=== PATIENT | female | born 1955 | race Caucasian/White ===

== ENCOUNTER 2023-07-22 01:44 | Outpatient (RCR) | payer MEDICARE, SELFPAY ==
[2023-07-20] MEDS: Normal Saline Flush 10 ML SYR IVP (07:36)
[2023-07-20 08:03] LABS: Abs Immature Grans 0.03 10^3/uL (0.0-0.06); Absolute Basophil Count 0.02 10^3/uL (0.0-0.2); Absolute Eosinophil Count 0.06 10^3/uL (0.0-0.7); Absolute Lymphocyte Count 1.81 10^3/uL (1.2-3.4); Absolute Monocyte Count 0.66 10^3/uL (0.1-0.8); Absolute Neutrophil Count 5.26 10^3/uL (1.2-6.7); Basophils % 0.3; Eosinophils % 0.8; HCT 34.6 % (36.0-46.0); HGB 11.3 g/dL (11.2-15.7); Immature Grans % 0.4; Lymphocytes % 23.1; MCHC 32.7 % (32.0-36.0); MCV 92 fL (80-95); MPV 8.7 fL (8.0-11.0); Monocytes % 8.4; Platelet Count 193 10^3/uL (130-400); RBC 3.77 10^6/uL (3.93-5.22); RDW 16.7 % (11.7-14.6); RDW-SD 53.3 fL; WBC 7.84 10^3/uL (4.4-10.8)
[2023-07-20 08:18] LABS: ALT 15 U/L (14-59); AST 15 U/L (15-37); Albumin 3.3 g/dL (3.4-5.0); Alkaline Phosphatase 71 U/L (46-116); Anion Gap 9.6 mmol/L (3-11); BUN 12 mg/dL (7-18); Bilirubin, Total 0.8 mg/dL (0.2-1.0); CO2 27.4 mmol/L (21.0-32.0); CREATININE 0.8 mg/dL (0.55-1.02); Calcium 9.6 mg/dL (8.5-10.1); Chloride 103 mmol/L (98-107); Estimated GFR 79.71 (mL/min/1.73m2); Glucose 90 mg/dL (74-106); Potassium 3.7 mmol/L (3.5-5.1); Sodium 140 mmol/L (136-145); Total Protein 7.8 g/dL (6.4-8.2)
[2023-07-20 19:41] LABS: CEA 1.9 ng/mL (See Note)
[2023-07-22 10:24] VITALS: BP 170/78; PULSE 68; RESP 16; TEMP 36.5; O2SAT 99
[2023-07-22] MEDS: Normal Saline Flush 10 ML SYR IVP (10:26)
[2023-07-22] MEDS: Heparin 500 UNITS/5 ML SYRINGE IV (10:27)
== END 2023-08-02 23:59 | disposition home or self-care (01) ==
LOC: INF 01:44
PROVIDERS: Visit Provider Internal Medicine Hematology & Oncology
DX: C18.2 Malignant neoplasm of ascending colon (principal); Z45.2 Encounter for adjustment and management of vascular access device
CPT/HCPCS: 36591; 80053; 81232; 96523; 82378; 85025

== ENCOUNTER 2023-09-02 02:30 | Outpatient (RCR) | payer MEDICARE, SELFPAY ==
[2023-08-03 00:27] VITALS: BP 170/78; PULSE 68; RESP 16; TEMP 36.5
[2023-08-03] MEDS: Normal Saline Flush 10 ML SYR IVP (07:56)
[2023-08-03 08:22] LABS: Absolute Basophil Count 0.02 10^3/uL (0.0-0.2); Absolute Eosinophil Count 0.05 10^3/uL (0.0-0.7); Absolute Lymphocyte Count 1.31 10^3/uL (1.2-3.4); Absolute Monocyte Count 0.45 10^3/uL (0.1-0.8); Absolute Neutrophil Count 1.53 10^3/uL (1.2-6.7); Basophils % 0.6; Eosinophils % 1.5; HCT 34.4 % (36.0-46.0); HGB 11.5 g/dL (11.2-15.7); MCHC 33.4 % (32.0-36.0); MCV 93 fL (80-95); MPV 8.7 fL (8.0-11.0); Monocytes % 13.4; Neutrophils % 45.5; Platelet Count 227 10^3/uL (130-400); RBC 3.71 10^6/uL (3.93-5.22); RDW 13.7 % (11.7-14.6); RDW-SD 45.1 fL; WBC 3.36 10^3/uL (4.4-10.8)
[2023-08-03 08:49] LABS: ALT 14 U/L (14-59); AST 12 U/L (15-37); Albumin 3.3 g/dL (3.4-5.0); Alkaline Phosphatase 84 U/L (46-116); Anion Gap 10.2 mmol/L (3-11); BUN 17 mg/dL (7-18); Bilirubin, Total 0.2 mg/dL (0.2-1.0); CO2 27.8 mmol/L (21.0-32.0); CREATININE 0.7 mg/dL (0.55-1.02); Calcium 9.1 mg/dL (8.5-10.1); Chloride 104 mmol/L (98-107); Estimated GFR 93.56 (mL/min/1.73m2); Glucose 86 mg/dL (74-106); Potassium 3.9 mmol/L (3.5-5.1); Sodium 142 mmol/L (136-145); Total Protein 7.7 g/dL (6.4-8.2)
[2023-08-03 21:14] LABS: CEA 2.6 ng/mL (See Note)
[2023-08-05 10:55] VITALS: BP 146/77; PULSE 63; RESP 16; TEMP 36.5; O2SAT 99
[2023-08-05] MEDS: Heparin 500 UNITS/5 ML SYRINGE IV (11:00)
[2023-08-05] MEDS: Normal Saline Flush 10 ML SYR IVP (11:00)
[2023-08-17 08:15] LABS: Abs Immature Grans 0.02 10^3/uL (0.0-0.06); Absolute Basophil Count 0.03 10^3/uL (0.0-0.2); Absolute Eosinophil Count 0.03 10^3/uL (0.0-0.7); Absolute Lymphocyte Count 1.55 10^3/uL (1.2-3.4); Absolute Monocyte Count 0.73 10^3/uL (0.1-0.8); Absolute Neutrophil Count 3.47 10^3/uL (1.2-6.7); Basophils % 0.5; Eosinophils % 0.5; HGB 11.7 g/dL (11.2-15.7); Immature Grans % 0.3; Lymphocytes % 26.6; MCH 31.7 pg (27.0-33.0); MCHC 34.4 % (32.0-36.0); MCV 92 fL (80-95); Monocytes % 12.5; Neutrophils % 59.6; Platelet Count 121 10^3/uL (130-400); RBC 3.69 10^6/uL (3.93-5.22); RDW 13.7 % (11.7-14.6); WBC 5.83 10^3/uL (4.4-10.8)
[2023-08-17 08:34] LABS: ALT 32 U/L (14-59); AST 43 U/L (15-37); Albumin 3.4 g/dL (3.4-5.0); Alkaline Phosphatase 75 U/L (46-116); Anion Gap 9.5 mmol/L (3-11); BUN 16 mg/dL (7-18); Bilirubin, Total 0.2 mg/dL (0.2-1.0); CO2 26.5 mmol/L (21.0-32.0); CREATININE 0.7 mg/dL (0.55-1.02); Calcium 9.2 mg/dL (8.5-10.1); Chloride 104 mmol/L (98-107); Estimated GFR 93.56 (mL/min/1.73m2); Glucose 89 mg/dL (74-106); Potassium 3.9 mmol/L (3.5-5.1); Sodium 140 mmol/L (136-145); Total Protein 7.5 g/dL (6.4-8.2)
[2023-08-17] MEDS: Normal Saline Flush 10 ML SYR IVP (10:21)
[2023-08-17 21:11] LABS: CEA 3.6 ng/mL (See Note)
[2023-08-19 09:18] VITALS: BP 170/97; PULSE 72; RESP 16; TEMP 35.9; O2SAT 98
[2023-08-19] MEDS: Normal Saline Flush 10 ML SYR IVP (09:31)
[2023-08-19] MEDS: Heparin 500 UNITS/5 ML SYRINGE IV (09:31)
[2023-08-31] MEDS: Normal Saline Flush 10 ML SYR IVP (07:30)
[2023-08-31 08:06] LABS: Abs Immature Grans 0.01 10^3/uL (0.0-0.06); Absolute Basophil Count 0.02 10^3/uL (0.0-0.2); Absolute Eosinophil Count 0.02 10^3/uL (0.0-0.7); Absolute Lymphocyte Count 1.35 10^3/uL (1.2-3.4); Absolute Monocyte Count 0.74 10^3/uL (0.1-0.8); Absolute Neutrophil Count 1.79 10^3/uL (1.2-6.7); Basophils % 0.5; Eosinophils % 0.5; HCT 33.3 % (36.0-46.0); HGB 11.2 g/dL (11.2-15.7); Immature Grans % 0.3; Lymphocytes % 34.4; MCHC 33.6 % (32.0-36.0); MCV 92 fL (80-95); MPV 9.1 fL (8.0-11.0); Monocytes % 18.8; Neutrophils % 45.5; Platelet Count 134 10^3/uL (130-400); RBC 3.61 10^6/uL (3.93-5.22); RDW 14.6 % (11.7-14.6); RDW-SD 47.8 fL; WBC 3.93 10^3/uL (4.4-10.8)
[2023-08-31 08:23] LABS: ALT 131 U/L (14-59); AST 145 U/L (15-37); Alkaline Phosphatase 98 U/L (46-116); Anion Gap 9.5 mmol/L (3-11); BUN 12 mg/dL (7-18); Bilirubin, Total 0.4 mg/dL (0.2-1.0); CO2 26.5 mmol/L (21.0-32.0); CREATININE 0.6 mg/dL (0.55-1.02); Calcium 9.1 mg/dL (8.5-10.1); Chloride 104 mmol/L (98-107); Glucose 85 mg/dL (74-106); Potassium 3.6 mmol/L (3.5-5.1); Sodium 140 mmol/L (136-145); Total Protein 7.2 g/dL (6.4-8.2)
[2023-09-01 12:59] LABS: CEA 3.3 ng/mL (See Note)
[2023-09-02] MEDS: Heparin 500 UNITS/5 ML SYRINGE IV (10:00)
[2023-09-02 10:13] VITALS: BP 146/77; PULSE 69; RESP 16; TEMP 36.5; O2SAT 99
== END 2023-09-02 23:59 | disposition home or self-care (01) ==
LOC: INF 02:30
PROVIDERS: Visit Provider Internal Medicine Hematology & Oncology
DX: C18.2 Malignant neoplasm of ascending colon (principal); Z45.2 Encounter for adjustment and management of vascular access device
CPT/HCPCS: 36591; 80053; 96523; 82378; 85025; J1642

== ENCOUNTER 2023-09-23 00:01 | Outpatient (RCR) | payer MEDICARE, MEDICAID, SELFPAY ==
[2023-09-03 00:23] VITALS: BP 170/78; PULSE 68; RESP 16; TEMP 36.5
[2023-09-14] MEDS: Normal Saline Flush 10 ML SYR IVP (07:39)
[2023-09-14 07:59] LABS: Abs Immature Grans 0.01 10^3/uL (0.0-0.06); HCT 33.4 % (36.0-46.0); HGB 11.7 g/dL (11.2-15.7); MCH 32.9 pg (27.0-33.0); MCV 94 fL (80-95); MPV 10.3 fL (8.0-11.0); RBC 3.56 10^6/uL (3.93-5.22); RDW 15.5 % (11.7-14.6); RDW-SD 52.1 fL
[2023-09-14 08:15] LABS: Absolute Basophil Count 0.04 10^3/uL (0.0-0.2); Absolute Eosinophil Count 0.07 10^3/uL (0.0-0.7); Absolute Lymphocyte Count 1.14 10^3/uL (1.2-3.4); Absolute Monocyte Count 0.31 10^3/uL (0.1-0.8); Absolute Neutrophil Count 0.64 10^3/uL (1.2-6.7); Atypical Lymphocytes % 4; Diff Comment Manual Differential; Platelet Count 121 10^3/uL (130-400); RBC Morphology Normal
[2023-09-14 08:20] LABS: ALT 81 U/L (14-59); AST 79 U/L (15-37); Albumin 3.1 g/dL (3.4-5.0); Alkaline Phosphatase 94 U/L (46-116); Anion Gap 9.3 mmol/L (3-11); BUN 10 mg/dL (7-18); Bilirubin, Total 0.5 mg/dL (0.2-1.0); CO2 29.7 mmol/L (21.0-32.0); CREATININE 0.8 mg/dL (0.55-1.02); Calcium 9.8 mg/dL (8.5-10.1); Chloride 106 mmol/L (98-107); Estimated GFR 79.71 (mL/min/1.73m2); Glucose 102 mg/dL (74-106); Potassium 3.8 mmol/L (3.5-5.1); Sodium 145 mmol/L (136-145); Total Protein 7.3 g/dL (6.4-8.2)
[2023-09-14 18:51] LABS: CEA 5.5 ng/mL (See Note)
[2023-09-21] MEDS: Normal Saline Flush 10 ML SYR IVP (07:15)
[2023-09-21 07:33] LABS: Abs Immature Grans 0.06 10^3/uL (0.0-0.06); Absolute Basophil Count 0.07 10^3/uL (0.0-0.2); Absolute Eosinophil Count 0.11 10^3/uL (0.0-0.7); Absolute Lymphocyte Count 1.59 10^3/uL (1.2-3.4); Absolute Monocyte Count 0.52 10^3/uL (0.1-0.8); Absolute Neutrophil Count 1.16 10^3/uL (1.2-6.7); Eosinophils % 3.1; HCT 36.8 % (36.0-46.0); HGB 12.2 g/dL (11.2-15.7); Immature Grans % 1.7; Lymphocytes % 45.3; MCH 31.4 pg (27.0-33.0); MCHC 33.2 % (32.0-36.0); MCV 95 fL (80-95); Monocytes % 14.8; Neutrophils % 33.1; Platelet Count 251 10^3/uL (130-400); RBC 3.89 10^6/uL (3.93-5.22); RDW 15.9 % (11.7-14.6); RDW-SD 55.1 fL; WBC 3.51 10^3/uL (4.4-10.8)
[2023-09-21 07:48] LABS: ALT 56 U/L (14-59); AST 39 U/L (15-37); Albumin 3.3 g/dL (3.4-5.0); Alkaline Phosphatase 94 U/L (46-116); Anion Gap 8.1 mmol/L (3-11); BUN 17 mg/dL (7-18); Bilirubin, Total 0.3 mg/dL (0.2-1.0); CO2 26.9 mmol/L (21.0-32.0); CREATININE 0.7 mg/dL (0.55-1.02); Calcium 9.7 mg/dL (8.5-10.1); Chloride 105 mmol/L (98-107); Estimated GFR 93.56 (mL/min/1.73m2); Glucose 86 mg/dL (74-106); Sodium 140 mmol/L (136-145); Total Protein 7.5 g/dL (6.4-8.2)
[2023-09-21 20:35] LABS: CEA 3.8 ng/mL (See Note)
[2023-09-23] MEDS: Normal Saline Flush 10 ML SYR IVP (09:35)
== END 2023-10-03 23:59 | disposition home or self-care (01) ==
LOC: INF 00:01
PROVIDERS: Visit Provider Internal Medicine Hematology & Oncology
DX: C18.2 Malignant neoplasm of ascending colon (principal); Z45.2 Encounter for adjustment and management of vascular access device
CPT/HCPCS: 36591; 80053; 96523; 82378; 85025

== ENCOUNTER 2023-10-28 00:06 | Outpatient (RCR) | payer MEDICARE, MEDICAID, SELFPAY ==
[2023-10-04 00:27] VITALS: BP 170/78; PULSE 68; RESP 16; TEMP 36.5
[2023-10-05 08:02] LABS: Absolute Basophil Count 0.01 10^3/uL (0.0-0.2); Absolute Eosinophil Count 0.07 10^3/uL (0.0-0.7); Absolute Lymphocyte Count 1.01 10^3/uL (1.2-3.4); Absolute Monocyte Count 0.52 10^3/uL (0.1-0.8); Absolute Neutrophil Count 1.38 10^3/uL (1.2-6.7); Basophils % 0.3; Eosinophils % 2.3; HCT 31.9 % (36.0-46.0); HGB 10.6 g/dL (11.2-15.7); Lymphocytes % 33.8; MCH 31.3 pg (27.0-33.0); MCHC 33.2 % (32.0-36.0); MCV 94 fL (80-95); MPV 9.7 fL (8.0-11.0); Monocytes % 17.4; Neutrophils % 46.2; Platelet Count 133 10^3/uL (130-400); RBC 3.39 10^6/uL (3.93-5.22); RDW 15.8 % (11.7-14.6); RDW-SD 54.2 fL; WBC 2.99 10^3/uL (4.4-10.8)
[2023-10-05 08:17] LABS: ALT 33 U/L (14-59); AST 30 U/L (15-37); Albumin 3.2 g/dL (3.4-5.0); Alkaline Phosphatase 98 U/L (46-116); Anion Gap 6.9 mmol/L (3-11); BUN 15 mg/dL (7-18); Bilirubin, Total 0.3 mg/dL (0.2-1.0); CO2 28.1 mmol/L (21.0-32.0); CREATININE 0.8 mg/dL (0.55-1.02); Calcium 9.3 mg/dL (8.5-10.1); Chloride 106 mmol/L (98-107); Estimated GFR 79.71 (mL/min/1.73m2); Glucose 91 mg/dL (74-106); Potassium 3.8 mmol/L (3.5-5.1); Sodium 141 mmol/L (136-145); Total Protein 7.3 g/dL (6.4-8.2)
[2023-10-05 18:32] LABS: CEA 4.2 ng/mL (See Note)
[2023-10-12] MEDS: Normal Saline Flush 10 ML SYR IVP (07:44)
[2023-10-12 08:17] LABS: Abs Immature Grans 0.06 10^3/uL (0.0-0.06); Absolute Basophil Count 0.03 10^3/uL (0.0-0.2); Absolute Eosinophil Count 0.06 10^3/uL (0.0-0.7); Absolute Lymphocyte Count 1.35 10^3/uL (1.2-3.4); Absolute Monocyte Count 0.43 10^3/uL (0.1-0.8); Absolute Neutrophil Count 1.28 10^3/uL (1.2-6.7); Basophils % 0.9; Eosinophils % 1.9; HCT 34.1 % (36.0-46.0); HGB 11.4 g/dL (11.2-15.7); Immature Grans % 1.9; Lymphocytes % 42.1; MCH 31.8 pg (27.0-33.0); MCHC 33.4 % (32.0-36.0); MCV 95 fL (80-95); MPV 9.4 fL (8.0-11.0); Monocytes % 13.4; Neutrophils % 39.8; Platelet Count 239 10^3/uL (130-400); RBC 3.59 10^6/uL (3.93-5.22); RDW 15.9 % (11.7-14.6); WBC 3.21 10^3/uL (4.4-10.8)
[2023-10-12 08:37] LABS: ALT 48 U/L (14-59); AST 44 U/L (15-37); Albumin 3.4 g/dL (3.4-5.0); Alkaline Phosphatase 99 U/L (46-116); Anion Gap 9.9 mmol/L (3-11); BUN 18 mg/dL (7-18); Bilirubin, Total 0.4 mg/dL (0.2-1.0); CO2 28.1 mmol/L (21.0-32.0); CREATININE 0.6 mg/dL (0.55-1.02); Calcium 9.6 mg/dL (8.5-10.1); Chloride 103 mmol/L (98-107); Glucose 82 mg/dL (74-106); Potassium 3.8 mmol/L (3.5-5.1); Sodium 141 mmol/L (136-145); Total Protein 7.5 g/dL (6.4-8.2)
[2023-10-14 09:41] VITALS: BP 137/65; PULSE 70; RESP 18; TEMP 36; O2SAT 99
[2023-10-14] MEDS: Normal Saline Flush 10 ML SYR IVP (09:44)
[2023-10-26] MEDS: Normal Saline Flush 10 ML SYR IVP (07:11)
[2023-10-26 07:20] LABS: Abs Immature Grans 0.01 10^3/uL (0.0-0.06); Absolute Basophil Count 0.02 10^3/uL (0.0-0.2); Absolute Eosinophil Count 0.08 10^3/uL (0.0-0.7); Absolute Lymphocyte Count 1.06 10^3/uL (1.2-3.4); Absolute Monocyte Count 0.46 10^3/uL (0.1-0.8); Absolute Neutrophil Count 1.57 10^3/uL (1.2-6.7); Basophils % 0.6; Eosinophils % 2.5; HCT 29.9 % (36.0-46.0); Immature Grans % 0.3; Lymphocytes % 33.1; MCH 32.2 pg (27.0-33.0); MCHC 33.4 % (32.0-36.0); MCV 96 fL (80-95); Monocytes % 14.4; Neutrophils % 49.1; Platelet Count 102 10^3/uL (130-400); RBC 3.11 10^6/uL (3.93-5.22); RDW 15.4 % (11.7-14.6); RDW-SD 53.5 fL
[2023-10-26 07:34] LABS: ALT 39 U/L (14-59); AST 36 U/L (15-37); Albumin 3.3 g/dL (3.4-5.0); Alkaline Phosphatase 97 U/L (46-116); Anion Gap 9.1 mmol/L (3-11); BUN 11 mg/dL (7-18); Bilirubin, Total 0.5 mg/dL (0.2-1.0); CO2 26.9 mmol/L (21.0-32.0); CREATININE 0.7 mg/dL (0.55-1.02); Calcium 9.4 mg/dL (8.5-10.1); Chloride 107 mmol/L (98-107); Estimated GFR 93.56 (mL/min/1.73m2); Glucose 85 mg/dL (74-106); Potassium 3.8 mmol/L (3.5-5.1); Sodium 143 mmol/L (136-145)
[2023-10-28] MEDS: Normal Saline Flush 10 ML SYR IVP (09:04)
== END 2023-11-01 23:59 | disposition home or self-care (01) ==
LOC: INF 00:06
PROVIDERS: Visit Provider Internal Medicine Hematology & Oncology
DX: C18.2 Malignant neoplasm of ascending colon (principal); Z45.2 Encounter for adjustment and management of vascular access device
CPT/HCPCS: 36591; 80053; 96523; 82378; 85025

== ENCOUNTER 2023-11-25 00:46 | Outpatient (RCR) | payer MEDICARE, SELFPAY ==
[2023-11-02 00:09] VITALS: BP 170/78; PULSE 68; RESP 16; TEMP 36.5
[2023-11-09] MEDS: Normal Saline Flush 10 ML SYR IVP (07:10)
[2023-11-09 07:29] LABS: Abs Immature Grans 0.01 10^3/uL (0.0-0.06); Absolute Basophil Count 0.02 10^3/uL (0.0-0.2); Absolute Eosinophil Count 0.04 10^3/uL (0.0-0.7); Absolute Lymphocyte Count 1.14 10^3/uL (1.2-3.4); Absolute Monocyte Count 0.64 10^3/uL (0.1-0.8); Absolute Neutrophil Count 2.16 10^3/uL (1.2-6.7); Basophils % 0.5; HCT 32.6 % (36.0-46.0); HGB 10.9 g/dL (11.2-15.7); Immature Grans % 0.2; Lymphocytes % 28.4; MCH 32.6 pg (27.0-33.0); MCHC 33.4 % (32.0-36.0); MCV 98 fL (80-95); MPV 9.4 fL (8.0-11.0); Neutrophils % 53.9; Platelet Count 106 10^3/uL (130-400); RBC 3.34 10^6/uL (3.93-5.22); RDW-SD 54.1 fL; WBC 4.01 10^3/uL (4.4-10.8)
[2023-11-09 07:59] LABS: ALT 38 U/L (14-59); AST 34 U/L (15-37); Albumin 3.4 g/dL (3.4-5.0); Alkaline Phosphatase 103 U/L (46-116); Anion Gap 5.9 mmol/L (3-11); BUN 13 mg/dL (7-18); Bilirubin, Total 0.4 mg/dL (0.2-1.0); CO2 29.1 mmol/L (21.0-32.0); CREATININE 0.8 mg/dL (0.55-1.02); Calcium 9.6 mg/dL (8.5-10.1); Chloride 105 mmol/L (98-107); Estimated GFR 79.71 (mL/min/1.73m2); Glucose 86 mg/dL (74-106); Potassium 3.8 mmol/L (3.5-5.1); Sodium 140 mmol/L (136-145); Total Protein 7.3 g/dL (6.4-8.2)
[2023-11-09 18:10] LABS: CEA 4.7 ng/mL (See Note)
[2023-11-11 10:10] VITALS: BP 135/82; PULSE 86; RESP 18; TEMP 36.6; O2SAT 99
[2023-11-23] MEDS: Normal Saline Flush 10 ML SYR IVP (07:05)
[2023-11-23 07:54] LABS: Abs Immature Grans 0.01 10^3/uL (0.0-0.06); Absolute Basophil Count 0.01 10^3/uL (0.0-0.2); Absolute Eosinophil Count 0.04 10^3/uL (0.0-0.7); Absolute Lymphocyte Count 1.21 10^3/uL (1.2-3.4); Absolute Monocyte Count 0.46 10^3/uL (0.1-0.8); Absolute Neutrophil Count 1.19 10^3/uL (1.2-6.7); Basophils % 0.3; Eosinophils % 1.4; HCT 32.1 % (36.0-46.0); HGB 10.5 g/dL (11.2-15.7); Immature Grans % 0.3; Lymphocytes % 41.4; MCH 32.4 pg (27.0-33.0); MCHC 32.7 % (32.0-36.0); MCV 99 fL (80-95); Monocytes % 15.8; Neutrophils % 40.8; Platelet Count 101 10^3/uL (130-400); RBC 3.24 10^6/uL (3.93-5.22); RDW 14.1 % (11.7-14.6); RDW-SD 51.8 fL; WBC 2.92 10^3/uL (4.4-10.8)
[2023-11-23 08:35] LABS: ALT 35 U/L (14-59); AST 40 U/L (15-37); Albumin 3.4 g/dL (3.4-5.0); Alkaline Phosphatase 99 U/L (46-116); Anion Gap 9.5 mmol/L (3-11); BUN 15 mg/dL (7-18); Bilirubin, Total 0.4 mg/dL (0.2-1.0); CO2 26.5 mmol/L (21.0-32.0); CREATININE 0.7 mg/dL (0.55-1.02); Calcium 9.2 mg/dL (8.5-10.1); Chloride 107 mmol/L (98-107); Estimated GFR 93.56 (mL/min/1.73m2); Glucose 82 mg/dL (74-106); Potassium 3.6 mmol/L (3.5-5.1); Sodium 143 mmol/L (136-145); Total Protein 7.4 g/dL (6.4-8.2)
[2023-11-25] MEDS: Normal Saline Flush 10 ML SYR IVP (08:18)
== END 2023-12-02 23:59 | disposition home or self-care (01) ==
LOC: INF 00:46
PROVIDERS: Visit Provider Internal Medicine Hematology & Oncology
DX: C18.2 Malignant neoplasm of ascending colon (principal); Z45.2 Encounter for adjustment and management of vascular access device
CPT/HCPCS: 36591; 80053; 96523; 82378; 85025

== ENCOUNTER 2023-12-23 01:07 | Outpatient (RCR) | payer MEDICARE, SELFPAY ==
[2023-12-03 00:16] VITALS: BP 170/78; PULSE 68; RESP 16; TEMP 36.5
[2023-12-07] MEDS: Normal Saline Flush 10 ML SYR IVP (07:38)
[2023-12-07 07:45] LABS: Abs Immature Grans 0.01 10^3/uL (0.0-0.06); Absolute Basophil Count 0.01 10^3/uL (0.0-0.2); Absolute Eosinophil Count 0.04 10^3/uL (0.0-0.7); Absolute Lymphocyte Count 1.11 10^3/uL (1.2-3.4); Absolute Monocyte Count 0.51 10^3/uL (0.1-0.8); Absolute Neutrophil Count 1.29 10^3/uL (1.2-6.7); Basophils % 0.3; Eosinophils % 1.3; HCT 32.6 % (36.0-46.0); HGB 10.7 g/dL (11.2-15.7); Immature Grans % 0.3; Lymphocytes % 37.4; MCH 32.6 pg (27.0-33.0); MCHC 32.8 % (32.0-36.0); MCV 99 fL (80-95); MPV 11.5 fL (8.0-11.0); Monocytes % 17.2; Neutrophils % 43.5; Platelet Count 104 10^3/uL (130-400); RBC 3.28 10^6/uL (3.93-5.22); RDW-SD 54.4 fL; WBC 2.97 10^3/uL (4.4-10.8)
[2023-12-07 08:02] LABS: ALT 39 U/L (14-59); AST 38 U/L (15-37); Albumin 3.4 g/dL (3.4-5.0); Alkaline Phosphatase 98 U/L (46-116); Anion Gap 8.2 mmol/L (3-11); BUN 11 mg/dL (7-18); Bilirubin, Total 0.5 mg/dL (0.2-1.0); CO2 26.8 mmol/L (21.0-32.0); CREATININE 0.6 mg/dL (0.55-1.02); Calcium 9.3 mg/dL (8.5-10.1); Chloride 108 mmol/L (98-107); Glucose 86 mg/dL (74-106); Sodium 143 mmol/L (136-145); Total Protein 7.2 g/dL (6.4-8.2)
[2023-12-07 18:00] LABS: CEA 4.3 ng/mL (See Note)
[2023-12-09] MEDS: Normal Saline Flush 10 ML SYR IVP (08:15)
[2023-12-21] MEDS: Normal Saline Flush 10 ML SYR IVP (07:00)
[2023-12-21 07:19] LABS: Abs Immature Grans 0.03 10^3/uL (0.0-0.06); Absolute Basophil Count 0.03 10^3/uL (0.0-0.2); Absolute Eosinophil Count 0.05 10^3/uL (0.0-0.7); Absolute Lymphocyte Count 1.74 10^3/uL (1.2-3.4); Absolute Monocyte Count 0.49 10^3/uL (0.1-0.8); Absolute Neutrophil Count 1.82 10^3/uL (1.2-6.7); Basophils % 0.7; Eosinophils % 1.2; HCT 32.8 % (36.0-46.0); HGB 10.8 g/dL (11.2-15.7); Immature Grans % 0.7; Lymphocytes % 41.8; MCH 32.3 pg (27.0-33.0); MCHC 32.9 % (32.0-36.0); MCV 98 fL (80-95); MPV 9.8 fL (8.0-11.0); Monocytes % 11.8; Neutrophils % 43.8; Platelet Count 137 10^3/uL (130-400); RBC 3.34 10^6/uL (3.93-5.22); RDW 14.9 % (11.7-14.6); RDW-SD 53.1 fL; WBC 4.16 10^3/uL (4.4-10.8)
[2023-12-21 07:50] LABS: ALT 29 U/L (14-59); AST 23 U/L (15-37); Albumin 3.4 g/dL (3.4-5.0); Alkaline Phosphatase 97 U/L (46-116); Anion Gap 6.5 mmol/L (3-11); BUN 17 mg/dL (7-18); Bilirubin, Total 0.3 mg/dL (0.2-1.0); CO2 28.5 mmol/L (21.0-32.0); CREATININE 0.8 mg/dL (0.55-1.02); Calcium 9.1 mg/dL (8.5-10.1); Chloride 107 mmol/L (98-107); Estimated GFR 79.22 (mL/min/1.73m2); Glucose 87 mg/dL (74-106); Potassium 4.1 mmol/L (3.5-5.1); Sodium 142 mmol/L (136-145); Total Protein 7.3 g/dL (6.4-8.2)
[2023-12-23] MEDS: Normal Saline Flush 10 ML SYR IVP (08:17)
== END 2024-01-01 23:59 | disposition home or self-care (01) ==
LOC: INF 01:07
PROVIDERS: Visit Provider Internal Medicine Hematology & Oncology
DX: C18.2 Malignant neoplasm of ascending colon (principal); Z45.2 Encounter for adjustment and management of vascular access device
CPT/HCPCS: 36591; 80053; 96523; 82378; 85025

== ENCOUNTER 2024-01-06 02:25 | Outpatient (RCR) | payer MEDICARE, SELFPAY ==
[2024-01-02 00:24] VITALS: BP 170/78; PULSE 68; RESP 16; TEMP 36.5
[2024-01-04] MEDS: Normal Saline Flush 10 ML SYR IVP (07:46)
[2024-01-04 08:26] LABS: Abs Immature Grans 0.01 10^3/uL (0.0-0.06); Absolute Basophil Count 0.03 10^3/uL (0.0-0.2); Absolute Eosinophil Count 0.07 10^3/uL (0.0-0.7); Absolute Lymphocyte Count 1.35 10^3/uL (1.2-3.4); Absolute Monocyte Count 0.51 10^3/uL (0.1-0.8); Absolute Neutrophil Count 2.49 10^3/uL (1.2-6.7); Basophils % 0.7 %; Eosinophils % 1.6 %; HCT 33.3 % (36.0-46.0); HGB 10.9 g/dL (11.2-15.7); Immature Grans % 0.2 %; Lymphocytes % 30.3 %; MCH 32.2 pg (27.0-33.0); MCHC 32.7 % (32.0-36.0); MCV 98 fL (80-95); MPV 10.2 fL (8.0-11.0); Monocytes % 11.4 %; Neutrophils % 55.8 %; Platelet Count 159 10^3/uL (130-400); RBC 3.39 10^6/uL (3.93-5.22); RDW-SD 57.4 fL; WBC 4.46 10^3/uL (4.4-10.8)
[2024-01-04 08:37] LABS: ALT 26 U/L (14-59); AST 27 U/L (15-37); Albumin 3.7 g/dL (3.4-5.0); Alkaline Phosphatase 95 U/L (46-116); Anion Gap 7.5 mmol/L (3-11); BUN 20 mg/dL (7-18); Bilirubin, Total 0.5 mg/dL (0.2-1.0); CO2 28.5 mmol/L (21.0-32.0); CREATININE 0.7 mg/dL (0.55-1.02); Calcium 9.1 mg/dL (8.5-10.1); Chloride 107 mmol/L (98-107); Estimated GFR 92.98 (mL/min/1.73m2); Glucose 81 mg/dL (74-106); Potassium 4.1 mmol/L (3.5-5.1); Sodium 143 mmol/L (136-145); Total Protein 7.6 g/dL (6.4-8.2)
[2024-01-04 18:22] LABS: CEA 4.1 ng/mL (See Note)
[2024-01-06] MEDS: Normal Saline-STERILE FIELD 0.9% 10 ML SYR (08:24)
== END 2024-02-01 23:59 | disposition home or self-care (01) ==
LOC: INF 02:25
PROVIDERS: Visit Provider Internal Medicine Hematology & Oncology
DX: C18.2 Malignant neoplasm of ascending colon (principal); Z45.2 Encounter for adjustment and management of vascular access device
CPT/HCPCS: 36591; 80053; 96523; 82378; 85025

== ENCOUNTER 2024-05-09 00:49 | Outpatient (RCR) | payer MEDICARE, SELFPAY ==
[2024-05-09] MEDS: Normal Saline Flush 10 ML SYR IVP (07:53)
[2024-05-09 08:20] LABS: Abs Immature Grans 0.02 10^3/uL (0.0-0.06); Absolute Basophil Count 0.04 10^3/uL (0.0-0.2); Absolute Eosinophil Count 0.05 10^3/uL (0.0-0.7); Basophils % 0.9 %; Eosinophils % 1.1 %; HCT 36.4 % (36.0-46.0); HGB 11.7 g/dL (11.2-15.7); Immature Grans % 0.4 %; Lymphocytes % 36.9 %; MCH 30.1 pg (27.0-33.0); MCHC 32.1 % (32.0-36.0); MCV 94 fL (80-95); MPV 9.1 fL (8.0-11.0); Monocytes % 8.7 %; Platelet Count 200 10^3/uL (130-400); RBC 3.89 10^6/uL (3.93-5.22); RDW 14.7 % (11.7-14.6); RDW-SD 51.2 fL; WBC 4.61 10^3/uL (4.4-10.8)
[2024-05-09 08:41] LABS: ALT 29 U/L (14-59); AST 24 U/L (15-37); Albumin 3.9 g/dL (3.4-5.0); Alkaline Phosphatase 88 U/L (46-116); Anion Gap 10.8 mmol/L (3-11); BUN 27 mg/dL (7-18); Bilirubin, Total 0.28 mg/dL (0.2-1.0); CO2 26.2 mmol/L (21.0-32.0); CREATININE 0.8 mg/dL (0.55-1.02); Calcium 9.1 mg/dL (8.5-10.1); Chloride 104 mmol/L (98-107); Estimated GFR 79.22 (mL/min/1.73m2); Glucose 91 mg/dL (74-106); Potassium 4.1 mmol/L (3.5-5.1); Sodium 141 mmol/L (136-145)
[2024-05-09 18:31] LABS: CEA 2.9 ng/mL (See Note)
== END 2024-06-02 23:59 | disposition home or self-care (01) ==
LOC: INF 00:49
PROVIDERS: Visit Provider Internal Medicine Hematology & Oncology
DX: C18.2 Malignant neoplasm of ascending colon (principal)
CPT/HCPCS: 36591; 80053; 82378; 85025

== ENCOUNTER 2024-08-07 02:57 | Outpatient (RCR) | payer MEDICARE, SELFPAY ==
[2024-08-07] MEDS: Normal Saline Flush 10 ML SYR IVP ×2 (08:21→11:14)
[2024-08-07 11:25] LABS: Abs Immature Grans 0.05 10^3/uL (0.0-0.06); Absolute Basophil Count 0.03 10^3/uL (0.0-0.2); Absolute Eosinophil Count 0.11 10^3/uL (0.0-0.7); Absolute Lymphocyte Count 1.37 10^3/uL (1.2-3.4); Absolute Monocyte Count 0.44 10^3/uL (0.1-0.8); Absolute Neutrophil Count 5.09 10^3/uL (1.2-6.7); Basophils % 0.4 %; Eosinophils % 1.6 %; HCT 33.5 % (36.0-46.0); HGB 10.7 g/dL (11.2-15.7); Immature Grans % 0.7 %; Lymphocytes % 19.3 %; MCHC 31.9 % (32.0-36.0); MCV 97 fL (80-95); MPV 8.7 fL (8.0-11.0); Monocytes % 6.2 %; Neutrophils % 71.8 %; Platelet Count 243 10^3/uL (130-400); RBC 3.45 10^6/uL (3.93-5.22); RDW 13.8 % (11.7-14.6); RDW-SD 49.1 fL; WBC 7.09 10^3/uL (4.4-10.8)
[2024-08-07 11:40] LABS: ALT 20 U/L (14-59); AST 18 U/L (15-37); Albumin 3.6 g/dL (3.4-5.0); Alkaline Phosphatase 101 U/L (46-116); BUN 16 mg/dL (7-18); Bilirubin, Total 0.23 mg/dL (0.2-1.0); CREATININE 0.9 mg/dL (0.55-1.02); Chloride 107 mmol/L (98-107); Estimated GFR 68.77 (mL/min/1.73m2); Glucose 134 mg/dL (74-106); Sodium 144 mmol/L (136-145); Total Protein 7.7 g/dL (6.4-8.2)
[2024-08-07 19:22] LABS: CEA 2.9 ng/mL (See Note)
== END 2024-09-02 23:59 | disposition home or self-care (01) ==
LOC: INF 02:57
PROVIDERS: Visit Provider Internal Medicine Hematology & Oncology
DX: C18.2 Malignant neoplasm of ascending colon (principal); Z45.2 Encounter for adjustment and management of vascular access device
CPT/HCPCS: 80053; 96523; 82378; 85025

== ENCOUNTER 2024-10-03 10:05 | Outpatient (RCR) | payer MEDICARE, SELFPAY ==
[2024-10-03] MEDS: Normal Saline Flush 10 ML SYR IVP (10:17)
[2024-10-03] MEDS: Heparin 500 UNITS/5 ML SYRINGE (10:18)
== END 2024-10-03 23:59 | disposition home or self-care (01) ==
LOC: INF 10:05
PROVIDERS: Visit Provider Internal Medicine Hematology & Oncology
DX: Z45.2 Encounter for adjustment and management of vascular access device (principal)
CPT/HCPCS: 96523; J1642

== ENCOUNTER 2024-11-06 02:33 | Outpatient (RCR) | payer MEDICARE, SELFPAY ==
[2024-11-06] MEDS: Normal Saline Flush 10 ML SYR IVP (07:20)
== END 2024-12-01 23:59 | disposition home or self-care (01) ==
LOC: INF 02:33
PROVIDERS: Visit Provider Internal Medicine Hematology & Oncology
DX: Z45.2 Encounter for adjustment and management of vascular access device (principal)
CPT/HCPCS: 96523

== ENCOUNTER 2024-11-06 12:05 | Outpatient (REF) | payer MEDICARE, SELFPAY ==
[2024-11-06 09:25] LABS: Abs Immature Grans 0.02 10^3/uL (0.0-0.06); Absolute Basophil Count 0.02 10^3/uL (0.0-0.2); Absolute Eosinophil Count 0.06 10^3/uL (0.0-0.7); Absolute Lymphocyte Count 1.42 10^3/uL (1.2-3.4); Absolute Monocyte Count 0.46 10^3/uL (0.1-0.8); Absolute Neutrophil Count 3.67 10^3/uL (1.2-6.7); Basophils % 0.4 %; Eosinophils % 1.1 %; HCT 32.8 % (36.0-46.0); HGB 10.2 g/dL (11.2-15.7); Immature Grans % 0.4 %; Lymphocytes % 25.1 %; MCH 27.5 pg (27.0-33.0); MCHC 31.1 % (32.0-36.0); MCV 88 fL (80-95); MPV 9.8 fL (8.0-11.0); Monocytes % 8.1 %; Neutrophils % 64.9 %; Platelet Count 221 10^3/uL (130-400); RBC 3.71 10^6/uL (3.93-5.22); RDW 14.9 % (11.7-14.6); RDW-SD 48.7 fL; WBC 5.65 10^3/uL (4.4-10.8)
[2024-11-06 09:40] LABS: ALT 22 U/L (14-59); AST 20 U/L (15-37); Albumin 3.7 g/dL (3.4-5.0); Alkaline Phosphatase 92 U/L (46-116); Anion Gap 7.5 mmol/L (3-11); BUN 23 mg/dL (7-18); Bilirubin, Total 0.31 mg/dL (0.2-1.0); CO2 28.5 mmol/L (21.0-32.0); CREATININE 0.8 mg/dL (0.55-1.02); Calcium 9.2 mg/dL (8.5-10.1); Chloride 107 mmol/L (98-107); Estimated GFR 79.22 (mL/min/1.73m2); Glucose 89 mg/dL (74-106); Sodium 143 mmol/L (136-145); Total Protein 7.8 g/dL (6.4-8.2)
== END 2024-11-06 12:06 | disposition home or self-care (01) ==
LOC: LBN 12:05
PROVIDERS: Visit Provider Nurse Practitioner Family
DX: C18.2 Malignant neoplasm of ascending colon (principal)
CPT/HCPCS: 80053; 82378; 85025

== ENCOUNTER 2024-12-18 00:57 | Outpatient (RCR) | payer MEDICARE, SELFPAY ==
[2024-12-18] MEDS: Normal Saline Flush 10 ML SYR IVP (08:37)
== END 2024-12-31 23:59 | disposition home or self-care (01) ==
LOC: INF 00:57
PROVIDERS: Visit Provider Internal Medicine Hematology & Oncology
DX: Z45.2 Encounter for adjustment and management of vascular access device (principal)
CPT/HCPCS: 96523

== ENCOUNTER 2025-03-31 04:27 | Outpatient (RCR) | payer MEDICARE, SELFPAY ==
[2025-03-31] MEDS: Normal Saline Flush 10 ML SYR IVP (07:47)
[2025-03-31 12:12] LABS: Abs Immature Grans 0.05 10^3/uL (0.0-0.06); HCT 28.6 % (36.0-46.0); HGB 9.2 g/dL (11.2-15.7); Immature Grans % 0.7 %; MCH 27.7 pg (27.0-33.0); MCHC 32.2 % (32.0-36.0); MCV 86 fL (80-95); MPV 9.2 fL (8.0-11.0); Platelet Count 279 10^3/uL (130-400); RBC 3.32 10^6/uL (3.93-5.22); RDW 16.7 % (11.7-14.6); RDW-SD 51.9 fL; WBC 7.51 10^3/uL (4.4-10.8)
[2025-03-31 12:33] LABS: ALT 21 U/L (14-59); AST 21 U/L (15-37); Albumin 2.0 g/dL (3.4-5.0); Alkaline Phosphatase 123 U/L (46-116); Anion Gap 5.1 mmol/L (3-11); BUN 8 mg/dL (7-18); Bilirubin, Total 0.2 mg/dL (0.2-1.0); CO2 30.9 mmol/L (21.0-32.0); Calcium 8.3 mg/dL (8.5-10.1); Chloride 101 mmol/L (98-107); Estimated GFR 78.72 (mL/min/1.73m2); Glucose 151 mg/dL (74-106); Potassium 3.0 mmol/L (3.5-5.1); Sodium 137 mmol/L (136-145); Total Protein 5.8 g/dL (6.4-8.2)
[2025-03-31 22:51] LABS: CEA 3.0 ng/mL (See Note)
== END 2025-04-02 23:59 | disposition home or self-care (01) ==
LOC: INF 04:27
PROVIDERS: Visit Provider Internal Medicine Hematology & Oncology
DX: C18.9 Malignant neoplasm of colon, unspecified (principal); Z45.2 Encounter for adjustment and management of vascular access device
CPT/HCPCS: 36591; 80053; 82378; 85025

== ENCOUNTER 2025-04-04 00:08 | Outpatient (RCR) | payer MEDICARE, SELFPAY ==
[2025-04-04 13:29] VITALS: BP 140/86; PULSE 72; RESP 22; TEMP 36.3; O2SAT 98
[2025-04-04] MEDS: Normal Saline Flush 10 ML SYR IVP (14:45)
== END 2025-05-03 23:59 | disposition home or self-care (01) ==
LOC: INF 00:08
PROVIDERS: Visit Provider Internal Medicine Hematology & Oncology
DX: Z45.2 Encounter for adjustment and management of vascular access device (principal)
CPT/HCPCS: 96523

== ENCOUNTER 2025-04-16 03:37 | Outpatient (RCR) | payer MEDICARE, SELFPAY ==
[2025-04-16] MEDS: Normal Saline Flush 10 ML SYR IVP (07:22)
[2025-04-16 07:24] LABS: Abs Immature Grans 0.01 10^3/uL (0.0-0.06); HCT 28.3 % (36.0-46.0); HGB 9.1 g/dL (11.2-15.7); Immature Grans % 0.3 %; MCH 28.1 pg (27.0-33.0); MCHC 32.2 % (32.0-36.0); MCV 87 fL (80-95); MPV 8.7 fL (8.0-11.0); Platelet Count 194 10^3/uL (130-400); RBC 3.24 10^6/uL (3.93-5.22); RDW 18.5 % (11.7-14.6); RDW-SD 58.1 fL; WBC 3.80 10^3/uL (4.4-10.8)
[2025-04-16 08:33] LABS: ALT 19 U/L (14-59); AST 22 U/L (15-37); Albumin 2.5 g/dL (3.4-5.0); Alkaline Phosphatase 110 U/L (46-116); Anion Gap 10.5 mmol/L (3-11); BUN 9 mg/dL (7-18); Bilirubin, Total 0.4 mg/dL (0.2-1.0); CO2 25.5 mmol/L (21.0-32.0); Calcium 8.1 mg/dL (8.5-10.1); Chloride 105 mmol/L (98-107); Estimated GFR 78.72 (mL/min/1.73m2); Glucose 92 mg/dL (74-106); Sodium 141 mmol/L (136-145); Total Protein 6.3 g/dL (6.4-8.2)
[2025-04-16 08:39] LABS: Potassium 2.9 mmol/L (3.5-5.1)
[2025-04-16 22:08] LABS: CEA 5.9 ng/mL (See Note)
== END 2025-05-03 23:59 | disposition home or self-care (01) ==
LOC: INF 03:37
PROVIDERS: Visit Provider Internal Medicine Hematology & Oncology
DX: C18.9 Malignant neoplasm of colon, unspecified (principal); Z45.2 Encounter for adjustment and management of vascular access device
CPT/HCPCS: 36591; 80053; 82378; 85025